=== PATIENT | female | born 1955 | race Caucasian/White ===

== ENCOUNTER 2019-05-04 21:21 | Emergency (ER) | payer BC ==
--- NOTE | 2019-05-04 21:55 | EDM.PDOC ---
ED HPI GENERAL MEDICAL PROBLEM - General Chief Complaint: General Stated Complaint: MILLER Dizzy Time Seen by Provider: 05/04/19 21:31 Source of Information: Reports: Patient History Limitations: Reports: No Limitations - History of Present Illness INITIAL COMMENTS - FREE TEXT/NARRATIVE: This patient is a 64 year old female that presents to the ER. Patient reports that she feels like she has had a sinus infection for a long time and felt like she waited to long to be seen. She reports that she was seen on and diagnosed with sinus infection and put on steroids and abx. She reports though for the last two days she has been feeling a lot of facial pain, pressure, headache that is global, ear pressure bilateral, and now dizziness. She reports that it feels hard to keep her balance and she is holding onto things while standing or walking so she does not fall. Onset Date: 05/02/19 Location: Reports: Head Quality: Reports: Ache Severity: Mild Improves with: Reports: None Worsens with: Reports: None Associated Symptoms: Reports: Headaches. Denies: Confusion, Chest Pain, Cough, cough w sputum, Diaphoresis, Fever/Chills, Loss of Appetite, Malaise, Nausea/ Vomiting, Rash, Seizure, Shortness of Breath, Syncope, Weakness Headache Pain Score (Numeric/FACES): 7 - Related Data Allergies Allergy/AdvReac Type Severity Reaction Status Date / Time No Known Allergies Allergy Verified 05/04/19 21:28 Home Meds: Home Meds . [No Known Home Meds] 05/04/19 [History] ED ROS GENERAL - Review of Systems Review Of Systems: See Below Constitutional: Reports: No Symptoms HEENT: Reports: Sinus Problem, Other (Sinus pain, bilateral ear pressure.) Respiratory: Reports: No Symptoms Cardiovascular: Reports: No Symptoms Endocrine: Reports: No Symptoms GI/Abdominal: Reports: No Symptoms : Reports: No Symptoms Musculoskeletal: Reports: No Symptoms Skin: Reports: No Symptoms Neurological: Reports: Dizziness, Headache. Denies: Confusion, Numbness, Seizure, Syncope, Tingling, Trouble Speaking, Weakness, Change in Speech Psychiatric: Reports: No Symptoms Hematologic/Lymphatic: Reports: No Symptoms Immunologic: Reports: No Symptoms ED EXAM, GENERAL - Physical Exam Exam: See Below Exam Limited By: No Limitations General Appearance: Alert, WD/WN, No Apparent Distress Eye Exam: Bilateral Eye: EOMI, Normal Inspection, PERRL Ears: Normal External Exam, Normal Canal, Hearing Grossly Normal, Normal TMs Ear Exam: Bilateral Ear: Auricle Normal, Canal Normal, TM normal, Other ( bilateral hearing aids removed for exam and replaced by patient) Nose: Normal Inspection, Normal Mucosa, No Blood Throat/Mouth: Normal Inspection, Normal Lips, Normal Teeth, Normal Gums, Normal Oropharynx, Normal Voice, No Airway Compromise Head: Atraumatic, Normocephalic, Facial Swelling (mild sinuses), Facial Tenderness (sinuses), Sinus Tenderness (all) Neck: Normal Inspection, Supple, Non-Tender, Full Range of Motion Respiratory/Chest: No Respiratory Distress, Lungs Clear, Normal Breath Sounds, No Accessory Muscle Use Cardiovascular: Normal Peripheral Pulses, Regular Rate, Rhythm, No Edema, No Gallop, No JVD, No Murmur, No Rub Peripheral Pulses: 2+: Radial (L), Radial (R), Posterior Tibial (L), Posterior Tibial (R) GI/Abdominal: Soft, Non-Tender Extremities: Normal Inspection, Normal Range of Motion, Non-Tender, No Pedal Edema, Normal Capillary Refill Neurological: Alert, Oriented, CN II-XII Intact (Stroke Score 0: GSC 15.), Normal Cognition, Normal Gait, No Motor/Sensory Deficits Psychiatric: Normal Affect, Normal Mood Skin Exam: Warm, Dry, Intact, Normal Color, No Rash Lymphatic: No Adenopathy Course - Vital Signs Last Recorded V/S: Last Vital Signs Temp 99.4 F 05/04/19 21:57 Pulse 68 05/04/19 21:57 Resp 18 05/04/19 21:57 BP 132/71 05/04/19 21:57 Pulse Ox 98 05/04/19 21:57 - Orders/Labs/Meds Orders: Active Orders 24 hr Category Date Time Status Head wo Cont [CT] Stat Exams 05/04/19 21:42 Taken CULTURE BLOOD [BC] Stat Lab 05/04/19 22:00 Received CULTURE BLOOD [BC] Stat Lab 05/04/19 22:05 Received Blood Culture x2 Reflex Set [OM.PC] Stat Oth 05/04/19 21:45 Ordered Labs: Laboratory Tests 05/04/19 05/04/19 05/04/19 Range/Units 22:00 22:00 22:00 WBC 9.6 (5.0-10.0) 10^3/uL RBC 4.86 (4.00-5.50) 10^6/uL Hgb 14.9 (12.0-16.0) g/dL Hct 45.0 (37.0-47.0) % MCV 92.6 (82.0-94.0) fL MCH 30.7 (27.0-32.0) pg MCHC 33.1 (33.0-38.0) g/dL RDW Coeff of Glenys 13.3 (11.0-15.0) % Plt Count 263 (150-400) 10^3/uL Neut % (Auto) 71.5 (35-85) % Lymph % (Auto) 20.9 (10-55) % Mobile % (Auto) 7.1 (0-16) % Eos % (Auto) 0.3 (0-5) % Baso % (Auto) 0.2 (0-3) % Neut # (Auto) 6.82 (1.80-7.00) 10^3/uL Lymph # (Auto) 2.00 (1.00-4.80) 10^3/uL Mobile # (Auto) 0.68 (0.00-0.80) 10^3/uL Eos # (Auto) 0.03 (0.00-0.45) 10^3/uL Baso # (Auto) 0.02 10^3/uL Sodium 142 (136-145) mEq/L Potassium 3.9 (3.5-5.0) mEq/L Chloride 105 (98-106) mEq/L Carbon Dioxide 26 (21-32) mmol/L BUN 18 (7-18) mg/dL Creatinine 0.8 (0.6-1.0) mg/dL Est Cr Clr Drug Dosing 60.31 mL/min Estimated GFR (MDRD) > 60 (>=60) mL/min Glucose 157 H (75-99) mg/dL Lactic Acid 1.4 (0.4-2.0) mmol/L Calcium 9.3 (8.4-10.1) mg/dL Total Bilirubin 0.3 (0.0-1.0) mg/dL AST 19 (15-37) U/L ALT 39 (12-78) U/L Alkaline Phosphatase 101 (46-116) U/L Total Protein 7.8 (6.4-8.2) g/dL Albumin 4.2 (3.4-5.0) g/dL - Radiology Interpretation Free Text/Narrative:: Head CT: No acute findings CT Results Date: 05/04/19 CT Results Time: 23:07 Departure - Departure Time of Disposition: 23:06 Disposition: Home, Self-Care 01 Condition: Fair Clinical Impression: Acute sinusitis Qualifiers: Sinusitis location: unspecified location Recurrence: non-recurrent Qualified Code(s): J01.90 - Acute sinusitis, unspecified - Discharge Information *PRESCRIPTION DRUG MONITORING PROGRAM REVIEWED*: Not Applicable *COPY OF PRESCRIPTION DRUG MONITORING REPORT IN PATIENT SAMANTHA: Not Applicable Instructions: Sinusitis, Adult, [id number], Dizziness, [id number] Referrals: PCP,Unknown [Primary Care Provider] - Forms: ED Department Discharge Additional Instructions: Followup with your primary care provider Return to the ER for worsening of condition or any emergent concerns Increase fluids Continue your medications as prescribed Over the counter Afrin for 3 days, then Flonase over the counter nasal sprays Neti Pot over the counter as needed for sinus rinsing Sepsis Event Note - Focused Exam Vital Signs: Vital Signs Temp Pulse Resp BP Pulse Ox 05/04/19 21:57 99.4 F 68 18 132/71 98 Date Exam was Performed: 05/04/19 Time Exam was Performed: 23:07 - My Orders Last 24 Hours: My Active Orders 05/04/19 21:42 Head wo Cont [CT] Stat 05/04/19 21:45 Blood Culture x2 Reflex Set [OM.PC] Stat 05/04/19 22:00 CULTURE BLOOD [BC] Stat 05/04/19 22:05 CULTURE BLOOD [BC] Stat - Assessment/Plan Last 24 Hours: My Active Orders 05/04/19 21:42 Head wo Cont [CT] Stat 05/04/19 21:45 Blood Culture x2 Reflex Set [OM.PC] Stat 05/04/19 22:00 CULTURE BLOOD [BC] Stat 05/04/19 22:05 CULTURE BLOOD [BC] Stat Plan: PLEASE SEE RN NOTE FOR PFSH.
[2019-05-04 22:23] LABS: CHLORIDE,CL 105 mEq/L (98-106); SODIUM,NA 142 mEq/L (136-145)
== END 2019-05-04 23:10 | disposition home or self-care (01) ==
LOC: CC.ED 21:21
DX: J01.90 Acute sinusitis, unspecified (principal)
CPT/HCPCS: 36415; 70450; 80053; 83605; 85025; 87040; 87804; 99284-25